=== PATIENT | male | born 1970 | race Hispanic/Latino ===

== ENCOUNTER 2021-08-12 08:01 | Day surgery (SDC) | payer BC ==
[2021-08-12] MEDS ORDERED: Ringers Lactate 1,000 ML IV ONE (08:22)
[2021-08-12 08:33] VITALS: O2SAT 100
[2021-08-12] MEDS ORDERED: propofoL 200 MG/20 ML VIAL IV ONE ×2 (09:03→09:24)
[2021-08-12] MEDS ORDERED: LIDOCAINE 1% MPF 5 ML VIAL ONE (09:04)
--- NOTE | 2021-08-12 09:30 | ENDO RPT ---
[address], [address] COLONOSCOPY PROCEDURE REPORT EXAM DATE: 08/12/2021 PATIENT NAME: Alvaro Bhagat MR #: [id number] BIRTHDATE: 1970 ATTENDING: Kelton Mora MD STATUS: outpatient FEEDER CATCHER: Miri Resendiz RN and Chris Ramirez CST INDICATIONS: The patient is a 51 yr old Male here for a colonoscopy due to colon cancer screening PROCEDURE PERFORMED: Colonoscopy with biopsy - cold polypectomy MEDICATIONS: Per Anesthesia. ESTIMATED BLOOD LOSS: None CONSENT: The patient understands the risks and benefits of the procedure and understands that these risks include, but are not limited to: sedation, allergic reaction, infection, perforation and/or bleeding. Alternative means of evaluation and treatment include, among others: physical exam, x-rays, and/or surgical intervention. The patient elects to proceed with this endoscopic procedure. DESCRIPTION OF PROCEDURE: During intra-op preparation period all mechanical medical equipment was checked for proper function. Hand hygiene and appropriate measures for infection prevention was taken. Procedure, possible complications, alternatives including, but not limited to possibility of bleeding, perforation, tear, infection, sepsis, need for surgery, need for blood transfusion, were explained to the patient. After the risks, benefits and alternatives of the procedure were thoroughly explained, Informed consent was verified, confirmed and timeout was successfully executed by the treatment team. The patient was placed in the left lateral position. A digital rectal exam was performed and revealed external hemorrhoids. After appropriate level of anesthesia, the scope was passed. The EC-[id number] ([id number]) endoscope was introduced through the anus and advanced to the cecum, which was identified by transillumination from the light source, the appendix, and the ileocecal valve. The quality of the prep was fair. The instrument was then slowly withdrawn as the colon was fully examined. Scope withdrawal time was . COLON FINDINGS: A sessile polyp was found approximately 15 cm from anal verge and about .3m in size. Retroflexed views revealed no abnormalities and Retroflexed views revealed medium hemorrhoids. The scope was then completely withdrawn from the patient and the procedure terminated. ADVERSE EVENTS: There were no complications. IMPRESSIONS: 1. Sessile polyp was found; polypectomy was performed in a piecemeal fashion using hot forceps 2. External hemorrhoids 3. Internal hemorrhoids 4. No abnormality palpated on the rectum over the prostate area. RECOMMENDATIONS: 1. follow-up: office 1 week(s) 2. await biopsy results 3. hemorrhoidal hygiene RECALL: for Colonoscopy, pending biopsy results. Kelton Mora MD eSigned: Kelton Mora MD 08/12/2021 9:30 AM cc: Kelton Mora M.D. CPT CODES: ICD9 CODES: PATIENT NAME: Alvaro Bhagat MR#: [id number]
[2021-08-12 10:32] VITALS: TEMP 97.8
[2021-08-12 10:35] VITALS: BP 168/78
== END 2021-08-12 10:03 | disposition home or self-care (01) ==
LOC: OR 08:01
PROVIDERS: ATTEND Surgery
PROC: 0DBP8ZX Excision of Rectum, Via Natural or Artificial Opening Endoscopic, Diagnostic (ICD-10-PCS; principal; 2021-08-12 09:00)
DX: Z12.11 Encounter for screening for malignant neoplasm of colon (principal); Z20.822 Contact with and (suspected) exposure to COVID-19; K63.5 Polyp of colon; K64.4 Residual hemorrhoidal skin tags; K64.8 Other hemorrhoids
CPT/HCPCS: 45380; 88305; U0003; J2704 ×2; J7120

== ENCOUNTER 2024-08-03 06:26 | Day surgery (SDC) | payer BC ==
[2024-08-03 07:13] LABS: Absolute Eosinophils 0.2 K/uL (0-0.5); Absolute Lymphocytes (CBC) 2.3 K/uL (0.7-4.9); Absolute Monocytes 0.5 K/uL (0.1-1.3); Absolute Neutrophil 2.9 K/uL (1.8-8.0); Basophils % 0.2 % (0-1.3); Eosinophils % 3.7 % (0-4.4); Hemoglobin 16.3 g/dL (13.6-17.9); Lymphocytes % 38.5 % (15.3-44.8); MCH 35.4 pg (27.0-35.0); MCHC 34.1 g/dL (32.0-36.0); MCV 104.1 fL (80-100); MPV 7.1 fL (7.6-11.3); Monocytes % 8.8 % (3.3-12.3); Neutrophils % 48.8 % (41.7-73.7); Nucleated Red Blood Cells % 0.1 % (0-0); Platelets 240 thou/uL (152-406); RBC Red Blood Cell Count 4.61 M/uL (4.33-5.43); Red Cell Distribution Width 13.8 % (12.1-15.2)
[2024-08-03 07:25] LABS: Anion Gap 10.9 mEq/L (5.0-15.0); Potassium 3.9 mEq/L (3.5-5.1)
[2024-08-03] MEDS: Ringers Lactate 1,000 ML IV ONE (07:25)
[2024-08-03] MEDS ORDERED: LIDOCAINE 1% MPF 5 ML VIAL ONE (07:52)
[2024-08-03] MEDS ORDERED: propofoL 200 MG/20 ML VIAL IV ONE ×2 (07:52→09:19)
[2024-08-03 12:18] VITALS: TEMP 97; O2SAT 100
[2024-08-03 12:19] VITALS: BP 138/81
--- NOTE | 2024-08-04 16:49 | EKG ---
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
== END 2024-08-03 10:00 | disposition home or self-care (01) ==
LOC: OR 06:26
PROVIDERS: ATTEND Surgery
PROC: 0DJD8ZZ Inspection of Lower Intestinal Tract, Via Natural or Artificial Opening Endoscopic (ICD-10-PCS; principal; 2024-08-03 09:00)
DX: Z12.11 Encounter for screening for malignant neoplasm of colon (principal); K64.4 Residual hemorrhoidal skin tags; K64.8 Other hemorrhoids; Z80.0 Family history of malignant neoplasm of digestive organs; Z86.0100 Personal history of colon polyps, unspecified
CPT/HCPCS: 85025; 80048; 36415; 45378; J2704 ×2; J2003; J7120; 93005